=== PATIENT | male | born 1955 | race Hispanic/Latino ===

== ENCOUNTER → 2019-01-03 | Outpatient (CLI) | payer OTHER | END | disposition home or self-care (01) | LOC: RAH 13:46 | PROVIDERS: ATTEND Internal Medicine | DX: I10 Essential (primary) hypertension (principal) | CPT/HCPCS: 93922 ==

== ENCOUNTER 2024-03-20 20:00 | Emergency (ER) | payer OTHER, MEDICARE ==
[~2024-03-20] VITALS: Ht 165.1 cm; Wt 79.4 kg
[2024-03-20] MEDS: acetaMINOPHEN 500 MG TABLET PO ONE (20:45)
[2024-03-20] MEDS: cePHALexin 500 MG CAPSULE PO ONE (20:45)
[2024-03-20] MEDS: NEOMY SULF/BACITRA/POLYMYXIN B 1 EACH PACKET TP ONE (21:06)
[2024-03-20] MEDS ORDERED: CEPH500T PO (21:07)
[2024-03-20] MEDS ORDERED: MUPI22O TP (21:07)
[2024-03-20 21:38] VITALS: BP 142/88; PULSE 84; RESP 16; TEMP 97.8; O2SAT 98
== END 2024-03-20 21:40 | disposition home or self-care (01) ==
LOC: EDH 20:00
DX: S80.812A Abrasion, left lower leg, initial encounter (principal); S80.811A Abrasion, right lower leg, initial encounter; E11.9 Type 2 diabetes mellitus without complications; E78.00 Pure hypercholesterolemia, unspecified; I10 Essential (primary) hypertension; X58.XXXA Exposure to other specified factors, initial encounter; Y93.89 Activity, other specified; Y92.89 Other specified places as the place of occurrence of the external cause; Y99.8 Other external cause status